=== PATIENT | male | born 1965 | race Caucasian/White ===

== ENCOUNTER 2017-05-03 07:11 | Day surgery (SDC) | payer OTHER ==
[~2017-05-03 07:11] MED LIST: Bupivacaine 0.5%/EPINEPHrine 1:200,000 50 ML MDV ONE; Dextrose 5%-Lactated Ringers 1,000 ML IV SCH; Lidocaine 1% 50 ML MDV ONE
[2017-05-03 07:31] VITALS: BP 106/71
[2017-05-03] MEDS ORDERED: Dextrose 5%-Lactated Ringers 1,000 ML IV SCH (08:30)
--- NOTE | 2017-05-06 14:31 | OR ---
DATE OF PROCEDURE: 05/03/2017 PREOPERATIVE DIAGNOSIS: Nonfunctioning gastrostomy tube. POSTOPERATIVE DIAGNOSIS: Nonfunctioning gastrostomy tube. PROCEDURE: Replacement of a nonfunctioning gastrostomy tube (42422). ANESTHESIA: None. DETAILS OF PROCEDURE: In the ACU procedure room, the patient was noted to have a nonfunctioning gastrostomy tube. At the bedside that tube was deflated and withdrawn and a similar 18-Mosotho gastrostomy tube was then placed. The balloon was inflated to 10 mL and the disc pulled up such that the balloon was up snugly against the abdominal wall to prevent leaking. There were no evident complications. The patient will be instructed to follow up at the clinic next time he needs the G tube removed as this did not require any anesthesia. Marvin Tobar MD /[id number]
== END 2017-05-03 09:17 | disposition home or self-care (01) ==
LOC: JP.SDS 07:11
PROVIDERS: ATTEND Surgery
DX: Z43.1 Encounter for attention to gastrostomy (principal); K94.23 Gastrostomy malfunction; I10 Essential (primary) hypertension; E78.00 Pure hypercholesterolemia, unspecified; K21.9 Gastro-esophageal reflux disease without esophagitis; E11.9 Type 2 diabetes mellitus without complications; E66.9 Obesity, unspecified; F32.9 Major depressive disorder, single episode, unspecified; Z90.49 Acquired absence of other specified parts of digestive tract; Z98.84 Bariatric surgery status; F17.210 Nicotine dependence, cigarettes, uncomplicated; Z68.25 Body mass index [BMI] 25.0-25.9, adult
CPT/HCPCS: 99213

== ENCOUNTER 2019-03-11 18:27 | Emergency (ER) | payer MEDICARE, OTHER ==
[2019-03-11 18:42] VITALS: BP 118/69
--- NOTE | 2019-03-11 19:30 | EDM.PDOC ---
ED HPI GENERAL MEDICAL PROBLEM - General Chief Complaint: General Stated Complaint: LEFT SIDE GJ TUBE PLUGGED Time Seen by Provider: 03/11/19 19:29 Source of Information: Reports: Patient History Limitations: Reports: No Limitations - History of Present Illness INITIAL COMMENTS - FREE TEXT/NARRATIVE: pt was advised by the clinic to come to the ER for the tube to be changed. Pt had called the clinic for a appt for tomorrow to get his tube changed and instead of making an appt they sent the pt to the ER, Onset: Other ( He has been struggling with the tube for several days. The tube has been in for 3 monthes. ) Duration: Hour(s):, Day(s): Associated Symptoms: Reports: Other (plugged GJ tube. ) Generalized Pain Score (Numeric/FACES): 6 - Related Data Allergies Allergy/AdvReac Type Severity Reaction Status Date / Time No Known Allergies Allergy Verified 03/11/19 18:52 Home Meds: Home Meds Ondansetron [Zofran ODT] 4 mg PO Q4H PRN #30 tab.dis 09/11/14 [Rx] Cyanocobalamin (Vitamin B-12) [Vitamin B-12] 1 tab SL DAILY 01/08/15 [History] Acetaminophen [Tylenol] 650 mg PO Q4H PRN 10/19/16 [History] Clotrimazole [Lotrimin AF 1% Crm] 1 g TOP BID 10/19/16 [History] Ergocalciferol (Vitamin D2) [Vitamin D2] 50,000 units PO WEEKLY 10/19/16 [ History] Multivitamin [Multiple Vitamins] 1 tab PO DAILY 10/19/16 [History] Pantoprazole [Protonix] 40 mg PO DAILY 10/19/16 [History] Prochlorperazine [Compazine] 5 mg PO Q4H PRN 10/19/16 [History] traZODone 50 mg PO BEDTIME 10/19/16 [History] Central TPN [Total Parenteral Nutrition, Central] 2,000 ml IV Q24H 05/03/17 [ History] Melatonin 1 tab PO DAILY 03/11/19 [History] Past Medical History Cardiovascular History: Reports: High Cholesterol, Hypertension, VT, Stents Respiratory History: Reports: Pneumonia, Recurrent Gastrointestinal History: Reports: Colon Polyp, GERD Genitourinary History: Reports: Renal Calculus, UTI, Recurrent Musculoskeletal History: Reports: Arthritis, Back Pain, Chronic Psychiatric History: Reports: Depression Endocrine/Metabolic History: Reports: Diabetes, Type II, Obesity/BMI 30+ Hematologic History: Reports: Iron Deficiency - Infectious Disease History Infectious Disease History: Reports: C-Difficile, MRSA - Past Surgical History Cardiovascular Surgical History: Reports: None Respiratory Surgical History: Reports: None GI Surgical History: Reports: Bariatric Procedure, Cholecystectomy, Colonoscopy , EGD, Other (See Below) Other GI Surgeries/Procedures: gj tube placed 2014 hooked up to suction most of the time Male Surgical History: Reports: None Endocrine Surgical History: Reports: None Neurological Surgical History: Reports: Spinal Fusion Musculoskeletal Surgical History: Reports: None, Other (See Below) Social & Family History - Family History Family Medical History: Noncontributory - Tobacco Use Smoking Status *Q: Never Smoker - Caffeine Use Caffeine Use: Reports: None - Recreational Drug Use Recreational Drug Use: No ED ROS GENERAL - Review of Systems Review Of Systems: See Below Constitutional: Reports: No Symptoms HEENT: Reports: No Symptoms Respiratory: Reports: No Symptoms Cardiovascular: Reports: No Symptoms Endocrine: Reports: No Symptoms GI/Abdominal: Reports: Other (pt has a plugged GJ tube. He is due to have it changed. ) : Reports: No Symptoms Musculoskeletal: Reports: No Symptoms Skin: Reports: No Symptoms ED EXAM, GENERAL - Physical Exam Exam: See Below Free Text/Narrative:: pt arrived with a plugged GJ tube. He is not in distress and would rather have Dr Tobar involved in the placement. Exam Limited By: No Limitations General Appearance: Alert, No Apparent Distress Ears: Normal TMs Nose: Normal Inspection Throat/Mouth: Normal Inspection Course - Vital Signs Last Recorded V/S: Last Vital Signs Temp 35.4 C 03/11/19 18:59 Pulse 75 03/11/19 18:59 Resp 16 03/11/19 18:59 BP 118/69 03/11/19 18:59 Pulse Ox 99 03/11/19 18:59 - Re-Assessments/Exams Free Text/Narrative Re-Assessment/Exam: 03/11/19 20:19 discussion was held with the pt regarding going to the [facility] tomorrow for tube placement. Departure - Departure Time of Disposition: 20:08 Disposition: Home, Self-Care 01 Condition: Fair Clinical Impression: Encounter for gastrojejunal (GJ) tube placement - Discharge Information Referrals: PCP,None [Primary Care Provider] - Forms: ED Department Discharge Care Plan Goals: pt was sent here for placemnt of a GJ tube. --he will go to the clinic tomorrow for placement.
== END 2019-03-11 20:30 | disposition home or self-care (01) ==
LOC: JP.ED 18:27
DX: Z43.1 Encounter for attention to gastrostomy (principal); E78.00 Pure hypercholesterolemia, unspecified; I10 Essential (primary) hypertension; I25.2 Old myocardial infarction; Z95.5 Presence of coronary angioplasty implant and graft; E11.9 Type 2 diabetes mellitus without complications; Z90.49 Acquired absence of other specified parts of digestive tract; Z98.84 Bariatric surgery status; Z79.899 Other long term (current) drug therapy
CPT/HCPCS: 99282

== ENCOUNTER 2019-11-14 14:58 | Inpatient (IN) | payer OTHER ==
[2019-11-14] MEDS ORDERED: Aluminum Hydroxide/Magnesium Hydroxide/Simethicone Susp 30 ML Cup PO PRN (16:00)
[2019-11-14] MEDS ORDERED: Bisacodyl 10 MG Supp RECTAL PRN (17:00)
[2019-11-14] MEDS: traMADol 50 MG Tab PO PRN (17:55)
[2019-11-14] MEDS: Fat Emulsion 250 ML IV SCH (17:57)
[2019-11-14] MEDS: Pantoprazole 40 MG Tab.CR PO SCH (17:57)
[2019-11-14] MEDS: 1: AA 5%/Calcium/D15W/Lytes 1,000 ML with MVI, Adult with Vitamin K 10 ML, Chromium/Copp IV SCH ×3 (17:57)
[2019-11-14] MEDS: Acetaminophen 500 MG Tab PO PRN (18:55)
[2019-11-14] MEDS: Baclofen 10 MG Tab PO PRN (18:56)
[2019-11-14] MEDS: Prochlorperazine 10 MG Tab PO PRN (18:56)
[2019-11-14] MEDS: traZODone 50 MG Tab PO SCH (21:00)
[2019-11-14] MEDS: Gabapentin 300 MG Cap PO SCH (21:25)
[2019-11-14] MEDS: Ondansetron 4 MG Tab.DIS PO SCH (21:25)
[2019-11-14] MEDS: Clotrimazole 1% Crm 30 GM Tube TOP SCH (21:26)
[2019-11-15] MEDS: traMADol 50 MG Tab PO PRN ×4 (02:04→22:40)
[2019-11-15] MEDS: 1: AA 5%/Calcium/D15W/Lytes 1,000 ML with MVI, Adult with Vitamin K 10 ML, Chromium/Copp IV SCH ×3 (04:10)
[2019-11-15] MEDS: DULoxetine 30 MG Cap PO SCH (08:14)
[2019-11-15] MEDS: Pantoprazole 40 MG Tab.CR PO SCH ×2 (08:14→16:43)
[2019-11-15] MEDS: Clotrimazole 1% Crm 30 GM Tube TOP SCH ×2 (08:15→21:18)
[2019-11-15] MEDS: Cyanocobalamin (Vitamin B12) 1,000 MCG Tab SL SCH (08:15)
[2019-11-15] MEDS: Magnesium Hydroxide 400 MG/5 ML Susp 30 ML Cup PO SCH (08:15)
[2019-11-15] MEDS: Gabapentin 300 MG Cap PO SCH ×3 (08:15→21:17)
[2019-11-15] MEDS: Furosemide 20 MG Tab PO SCH (08:15)
[2019-11-15] MEDS: Acetaminophen 500 MG Tab PO PRN ×2 (09:53→18:27)
[2019-11-15] MEDS: Nicotine 21 MG/24 Hr Patch TRDERM SCH (13:22)
[2019-11-15] MEDS ORDERED: 1: AA 5%/Calcium/D15W/Lytes 1,000 ML with MVI, Adult with Vitamin K 10 ML, Chromium/Copp IV SCH ×3 (14:00)
[2019-11-15] MEDS: Albuterol/Ipratropium 3.0-0.5 MG/3 ML Neb Soln INH PRN (14:43)
[2019-11-15] MEDS: 1: AA 5%/Calcium/D20W/Lytes 1,000 ML with MVI, Adult with Vitamin K 10 ML, Chromium/Copp IV SCH ×3 (14:52)
[2019-11-15] MEDS: Fat Emulsion 250 ML IV SCH (18:11)
[2019-11-15] MEDS: Ondansetron 4 MG Tab.DIS PO SCH (21:17)
[2019-11-15] MEDS: traZODone 50 MG Tab PO SCH (21:18)
[2019-11-16] MEDS: 1: AA 5%/Calcium/D20W/Lytes 1,000 ML with MVI, Adult with Vitamin K 10 ML, Chromium/Copp IV SCH ×9 (00:02→22:00)
[2019-11-16] MEDS: Albuterol/Ipratropium 3.0-0.5 MG/3 ML Neb Soln INH PRN (05:14)
[2019-11-16] MEDS: traMADol 50 MG Tab PO PRN ×3 (05:35→18:00)
[2019-11-16] MEDS ORDERED: Central Total Parenteral Nutrition Bag SCH (07:30)
[2019-11-16] MEDS: Pantoprazole 40 MG Tab.CR PO SCH ×2 (07:55→17:28)
[2019-11-16] MEDS: Magnesium Hydroxide 400 MG/5 ML Susp 30 ML Cup PO SCH (08:04)
[2019-11-16] MEDS: Cyanocobalamin (Vitamin B12) 1,000 MCG Tab SL SCH (08:08)
[2019-11-16] MEDS: DULoxetine 30 MG Cap PO SCH (08:08)
[2019-11-16] MEDS: Nicotine 21 MG/24 Hr Patch TRDERM SCH (08:08)
[2019-11-16] MEDS: Furosemide 20 MG Tab PO SCH (08:08)
[2019-11-16] MEDS: Gabapentin 300 MG Cap PO SCH ×3 (08:08→21:41)
[2019-11-16] MEDS: Clotrimazole 1% Crm 30 GM Tube TOP SCH ×2 (08:09→21:42)
--- NOTE | 2019-11-16 09:07 | PN ---
DATE OF SERVICE: 11/16/2019 SUBJECTIVE: Yeyo was admitted to the hospital on 11/14/2019 for malnutrition and deconditioning. He has been on TPN therapy and has persistent weakness and malnutrition. He reports no concerns or questions today. Temperature max in the past 24 hours 99.5. Reports weakness, fatigue. He does state this morning that he started getting hungry for the first time last night during the night and this a.m. which he states has been almost a year since he has felt hungry. REVIEW OF SYSTEMS: HEENT: Negative. NECK: Negative. CHEST: No chest pain, shortness of breath. LUNGS: Cough sometimes productive, not sure what color it is. ABDOMEN: Negative for pain. Gastrostomy tube in place. It is to drainage during the night and clamped during the day. Last bowel movement was 11/13/2019. States he has his normal bowel routine, it is 1 bowel movement every 1 to 1-1/2 weeks. GENITOURINARY: Culture and sensitivity is pending for his urine. It will be available later today. His bladder was scanned 3 times after voiding to check if there is any urinary retention. There were 80 mL on the first scan, second scan 19 mL, and third scan 75 mL. EXTREMITIES: Negative. NEUROLOGIC: Cranial nerves II through XII intact. PSYCHIATRIC: Mood and affect are appropriate. SKIN: Without rash. Remainder of review of systems negative for any pertinent positives and negatives. OBJECTIVE: GENERAL: Yeyo Dietrich is a 54-year-old male. VITAL SIGNS: Height is 6 feet 1 inch, weight is 175 pounds. BMI is 23. TPR from 11/15/2019 at 2300, 98.8, 68, 16, blood pressure 121/67. HEENT: Negative. NECK: Supple. HEART: Regular rate and rhythm. LUNGS: Revealed rales in bilateral bases. ABDOMEN: G tube intact. EXTREMITIES: Without peripheral edema. ASSESSMENT: 1. Malnutrition. 2. Deconditioning. 3. TPN for nutrition. 4. Urinary tract infection. PLAN: 1. Schedule, have consent signed for placement of Maynard catheter. N.p.o. after midnight. IV and local sedation scheduled for 07:15, Marvin Tobar MD. To be n.p.o. after midnight and to keep gastrostomy tube to dependent drainage. 2. Call Marvin Tobar MD, with results of sensitivity of urine. 3. Continue TPN. New orders were faxed to Pharmacy. 4. Culture methicillin-resistant Staphylococcus aureus to rule out methicillin-resistant Staphylococcus aureus per protocol. 5. Check CBC, CMP, mag, phos, and BNP in a.m. 6. Good pulmonary toilet. 7. We will evaluate p.r.n. or in a.m. Jessi Gonzales PA-C /[id number]
[2019-11-16 09:16] LABS: HEMOGLOBIN A1C 5.1 % (4.5-6.2)
--- NOTE | 2019-11-16 13:37 | PN ---
DATE OF SERVICE: 11/15/2019 The patient has been afebrile with stable vital signs. Complaining of some usual chronic back and some abdominal pain. The patient felt a little bit better with suction at a little higher rate than does at home, and it is presently at 75 cm of water versus 25 at home, and that may need adjustment again too. Otherwise, his alertness is good. Nutritionally, his labs came back showing quite low albumin at 2.2, and bicarb is strikingly low at 10, and we will make adjustments on the TPN to increase the acetate significantly. We will also give him some supplemental albumin today. With recurrent UTIs, I think we will get a post void bladder scan times three to see how well he is emptying the bladder, as that may be part of the underlying problem there, and while he is in the hospital, we will allow him to use his vaping mechanism, which is not seeming to be problematic at all. Physical Therapy will be seeing the patient starting tomorrow, and then on Saturday or so, we will likely, if he is not showing any signs of infection, try getting a Maynard catheter in, which it will be a longer term IV access than the frequently replaced simple subclavian catheters that he has been getting. Toward mid to end of the week, he may be ready for transfer to rehab facility that is able to manage TPN. Marvin Tobar MD /[id number]
[2019-11-16] MEDS: Fat Emulsion 250 ML IV SCH (17:30)
[2019-11-16] MEDS: Prochlorperazine 10 MG Tab PO PRN (17:30)
[2019-11-16] MEDS: Ondansetron 4 MG Tab.DIS PO SCH (21:41)
[2019-11-16] MEDS: traZODone 50 MG Tab PO SCH (21:42)
[2019-11-16] MEDS: Morphine 2 MG/ML Syringe IVPUSH PRN (21:42)
[2019-11-16] MEDS: Melatonin 3 MG Tab PO PRN (22:03)
[2019-11-17] MEDS: Acetaminophen 500 MG Tab PO PRN (02:23)
[2019-11-17] MEDS: traMADol 50 MG Tab PO PRN ×2 (02:24→18:52)
[2019-11-17] MEDS: Morphine 2 MG/ML Syringe IVPUSH PRN ×4 (03:51→21:38)
[2019-11-17] MEDS ORDERED: Lidocaine 1% with EPINEPHrine 1:100,000 50 ML MDV ONE (06:40)
[2019-11-17] MEDS ORDERED: Bupivacaine 0.5% 50 ML MDV ONE (06:40)
[2019-11-17] MEDS ORDERED: Propofol 200 MG/20 ML SDV ONE ×2 (06:47→07:47)
[2019-11-17] MEDS ORDERED: fentaNYL 100 MCG/2 ML SDV ONE (06:48)
[2019-11-17] MEDS ORDERED: Midazolam 1 MG/ML 2 ML SDV ONE (06:48)
[2019-11-17] MEDS: 1: AA 5%/Calcium/D20W/Lytes 1,000 ML with MVI, Adult with Vitamin K 10 ML, Chromium/Copp IV SCH ×6 (09:16→19:29)
[2019-11-17] MEDS: DULoxetine 30 MG Cap PO SCH (09:28)
[2019-11-17] MEDS: Furosemide 20 MG Tab PO SCH (09:28)
[2019-11-17] MEDS: Cyanocobalamin (Vitamin B12) 1,000 MCG Tab SL SCH (09:28)
[2019-11-17] MEDS: Pantoprazole 40 MG Tab.CR PO SCH ×2 (09:29→17:18)
[2019-11-17] MEDS: Gabapentin 300 MG Cap PO SCH ×3 (09:29→21:40)
[2019-11-17] MEDS: Clotrimazole 1% Crm 30 GM Tube TOP SCH ×2 (09:29→21:39)
[2019-11-17] MEDS: Nicotine 21 MG/24 Hr Patch TRDERM SCH (09:29)
[2019-11-17] MEDS: Magnesium Hydroxide 400 MG/5 ML Susp 30 ML Cup PO SCH (09:40)
[2019-11-17] MEDS: Sulfamethoxazole/Trimethoprim 800-160 MG Tab PO SCH (14:03)
[2019-11-17] MEDS: Fat Emulsion 250 ML IV SCH (18:29)
[2019-11-17] MEDS: Prochlorperazine 10 MG Tab PO PRN (19:38)
[2019-11-17] MEDS: Albuterol/Ipratropium 3.0-0.5 MG/3 ML Neb Soln INH PRN (21:14)
[2019-11-17] MEDS: traZODone 50 MG Tab PO SCH (21:39)
[2019-11-17] MEDS: Melatonin 3 MG Tab PO PRN (21:39)
[2019-11-17] MEDS: Ondansetron 4 MG Tab.DIS PO SCH (21:40)
[2019-11-18] MEDS: Acetaminophen 500 MG Tab PO PRN ×2 (00:24→08:40)
[2019-11-18] MEDS: Baclofen 10 MG Tab PO PRN ×3 (00:24→18:47)
[2019-11-18] MEDS: Morphine 2 MG/ML Syringe IVPUSH PRN ×4 (04:21→22:23)
[2019-11-18] MEDS: 1: AA 5%/Calcium/D20W/Lytes 1,000 ML with MVI, Adult with Vitamin K 10 ML, Chromium/Copp IV SCH ×6 (05:07→15:00)
--- NOTE | 2019-11-18 05:14 | CRLCR ---
INDICATION: Confirm subclavian placement TECHNIQUE: Chest radiograph 2 views COMPARISON: 09/02/2014 FINDINGS: Mediastinum: The mediastinum is normal in appearance. The heart silhouette is normal in size and morphology. A left IJ line is noted with the tip in the innominate vein. Lung: Bilateral pulmonary hyperinflation and lucency noted, suggestive of moderate pulmonary emphysema. Interval moderate right and mild left pleural thickening and pleural parenchymal scarring seen. No pneumothorax is identified. Bone and Soft tissue: Unremarkable for age. IMPRESSIONS: 1. Interval moderate right and mild left pleural thickening and pleural parenchymal scarring seen. 2. Bilateral pulmonary hyperinflation and lucency noted, suggestive of moderate pulmonary emphysema. Dictated by Hal Novoa MD @ 11/18/2019 5:13:16 AM Dictated by: Hal Novoa MD @ 11/18/2019 05:13:17 (Electronically Signed)
[2019-11-18] MEDS ORDERED: Central Total Parenteral Nutrition Bag SCH (07:30)
[2019-11-18] MEDS: Albumin 25% 12.5 GM in Premix Bag 1 BAG IV SCH (08:37)
[2019-11-18] MEDS: Furosemide 20 MG Tab PO SCH (08:38)
[2019-11-18] MEDS: Cyanocobalamin (Vitamin B12) 1,000 MCG Tab SL SCH (08:39)
[2019-11-18] MEDS: Sulfamethoxazole/Trimethoprim 800-160 MG Tab PO SCH (08:39)
[2019-11-18] MEDS: Gabapentin 300 MG Cap PO SCH ×3 (08:39→21:45)
[2019-11-18] MEDS: Pantoprazole 40 MG Tab.CR PO SCH ×2 (08:39→16:29)
[2019-11-18] MEDS: Nicotine 21 MG/24 Hr Patch TRDERM SCH (08:40)
--- NOTE | 2019-11-18 08:42 | PN ---
DATE OF SERVICE: 11/18/2019 SUBJECTIVE: James had a Maynard catheter placed yesterday, tolerating well. Unable to remove right central line. He will need to go to surgery to have that removed. LABORATORY DATA: This morning, hemoglobin was 8.9, creatinine 0.7, bilirubin 1.2, AST 60, ALT 88, and alkaline phos is 675. Albumin is up to 2.8. REVIEW OF SYSTEMS: Remainder of review of systems negative for any pertinent positives and negatives. OBJECTIVE: GENERAL: James Dietrich is a 54-year-old male, alert, orientated, color pale. VITAL SIGNS: TPR 98.1, 62, 16, blood pressure 91/55. HEENT: Negative. NECK: Supple. HEART: Regular rate and rhythm. LUNGS: Clear. ABDOMEN: Negative. Gastrostomy tube is clamped. EXTREMITIES: Without peripheral edema. ASSESSMENT: 1. Malnutrition. 2. Deconditioning. 3. TPN for nutrition. 4. Urinary tract infection. PLAN: 1. Schedule and have consent signed for removal of right central line IV, local sedation, , 11/19/2019. Marvin Tobar MD. 2. N.p.o. after midnight. 3. Leave gastrostomy tube to drainage. 4. Continue same TPN rate and contents. 5. Check CBC, CMP, mag and phos in a.m. 6. Good pulmonary toilet. 7. We will evaluate p.r.n. or in a.m. Jessi Gonzales PA-C /[id number]
[2019-11-18] MEDS: Magnesium Hydroxide 400 MG/5 ML Susp 30 ML Cup PO SCH (08:46)
[2019-11-18] MEDS: Clotrimazole 1% Crm 30 GM Tube TOP SCH ×2 (08:47→21:45)
[2019-11-18] MEDS: DULoxetine 30 MG Cap PO SCH (08:49)
[2019-11-18] MEDS ORDERED: Albumin 25% 12.5 GM in Premix Bag 1 BAG IV SCH ×3 (10:00→14:00)
[2019-11-18] MEDS: traMADol 50 MG Tab PO PRN (13:17)
[2019-11-18] MEDS: Fat Emulsion 250 ML IV SCH (17:33)
[2019-11-18] MEDS: Albuterol/Ipratropium 3.0-0.5 MG/3 ML Neb Soln INH PRN (18:47)
[2019-11-18] MEDS: Ondansetron 4 MG Tab.DIS PO SCH (21:45)
[2019-11-18] MEDS: traZODone 50 MG Tab PO SCH (21:45)
[2019-11-18] MEDS: Melatonin 3 MG Tab PO PRN (22:21)
[2019-11-19] MEDS: traMADol 50 MG Tab PO PRN (01:12)
[2019-11-19] MEDS: 1: AA 5%/Calcium/D20W/Lytes 1,000 ML with MVI, Adult with Vitamin K 10 ML, Chromium/Copp IV SCH ×3 (01:14)
[2019-11-19] MEDS: Morphine 2 MG/ML Syringe IVPUSH PRN (04:29)
[2019-11-19] MEDS ORDERED: Lidocaine 1% with EPINEPHrine 1:100,000 50 ML MDV ONE (06:37)
[2019-11-19] MEDS ORDERED: Bupivacaine 0.5% 50 ML MDV ONE (06:37)
[2019-11-19] MEDS ORDERED: Propofol 200 MG/20 ML SDV ONE (07:16)
[2019-11-19] MEDS ORDERED: Midazolam 1 MG/ML 2 ML SDV ONE (07:16)
[2019-11-19] MEDS ORDERED: fentaNYL 100 MCG/2 ML SDV ONE (07:16)
[2019-11-19] MEDS: Gabapentin 300 MG Cap PO SCH (09:04)
[2019-11-19] MEDS: Cyanocobalamin (Vitamin B12) 1,000 MCG Tab SL SCH (09:04)
[2019-11-19] MEDS: Sulfamethoxazole/Trimethoprim 800-160 MG Tab PO SCH (09:05)
[2019-11-19] MEDS: Pantoprazole 40 MG Tab.CR PO SCH (09:05)
[2019-11-19] MEDS: DULoxetine 30 MG Cap PO SCH (09:05)
[2019-11-19] MEDS: Furosemide 20 MG Tab PO SCH (09:06)
[2019-11-19] MEDS: Nicotine 21 MG/24 Hr Patch TRDERM SCH (09:06)
[2019-11-19] MEDS: Magnesium Hydroxide 400 MG/5 ML Susp 30 ML Cup PO SCH (09:07)
[2019-11-19] MEDS: Clotrimazole 1% Crm 30 GM Tube TOP SCH (09:07)
[2019-11-19] MEDS: Baclofen 10 MG Tab PO PRN (09:21)
[2019-11-19] MEDS: Albumin 25% 12.5 GM in Premix Bag 1 BAG IV SCH (09:23)
[2019-11-19 09:34] VITALS: PULSE 72
[2019-11-19 09:42] VITALS: BP 120/76
--- NOTE | 2019-11-19 10:43 | PN ---
DATE OF SERVICE: 11/17/2019 The patient has been afebrile with stable vital signs. He had a Maynard catheter placed today and will plan to get him home probably later in the week. He does not appear to qualify for inpatient rehab facility. We will continue to do the TPN at 2600 calories for now. His albumin did creep up a little bit at 1.2 and need to be watching that. Otherwise, the plan will be to run roughly that amount of calories over 14 hours at home, when he gets home. The patient has had problems with recurrent UTIs, and the cultures obtained now showed Klebsiella, which is sensitive, among other things, to Septra. We will start him on a daily Septra DS dose to try to decrease the likelihood of developing significant UTIs. Marvin Tobar MD /[id number]
--- NOTE | 2019-11-19 13:34 | OR ---
DATE OF PROCEDURE: 11/19/2019 SURGEON: Marvin Tobar MD PREOPERATIVE DIAGNOSIS: Status right internal jugular vein central venous catheter. POSTOPERATIVE DIAGNOSIS: Status right internal jugular vein central venous catheter. OPERATIVE PROCEDURE: Surgical removal of right-sided internal jugular vein central venous catheter (69443). ANESTHESIA: Local plus IV sedation. INDICATION FOR PROCEDURE: This is a 54-year-old male presenting with indications for removal of a right-sided central venous catheter. This catheter comes out on the skin roughly a handsbreadth below the clavicle, but just above the clavicle, there is what appears to be an ingrowth around, likely fibrous button at that point, and the catheter would not be able to be removed by simply going down through the skin. The plan is to proceed with an incision over that site, freeing up of the attachments, and removal of the catheter. Potential risks including bleeding and infection were reviewed, and the patient wishes to proceed. DETAILS OF PROCEDURE: The patient was taken to the operating room and placed in a supine position. IV sedation was administered, after which, the upper chest and neck areas were prepped and draped. The area over the palpable fibrous button, just below the clavicle, was anesthetized with 1% lidocaine. A transverse incision was made and carried down through the skin and subcutaneous tissue. The soft tissues around the fibrous button were then dissected free from the catheter and button, and the catheter was then pulled out a few centimeters. A pursestring stitch of 4-0 Vicryl stitch, where the catheter passed toward the jugular vein, was then placed and the catheter was removed the remainder of the length and that pursestring stitch pulled up and tied to prevent bleeding or air embolism. The catheter was then divided just proximal to the fibrous button, and the remaining catheter pulled out through the skin exit site. The incision was closed with 5-0 Vicryl subcuticular stitch along with reinforced with glue on the skin, and the external side left open. Dressing was applied. The patient was taken to the recovery room in satisfactory condition. There were no evident complications. Marvin Tobar MD /[id number]
[2019-11-20] MEDS ORDERED: Cholecalciferol (Vitamin D3) 50,000 Unit Cap PO SCH (09:00)
--- NOTE | 2019-11-20 15:28 | OR ---
DATE OF PROCEDURE: 11/17/2019 SURGEON: Marvin Tobar MD PREOPERATIVE DIAGNOSIS: Indications for long-term central venous access. POSTOPERATIVE DIAGNOSIS: Indications for long-term central venous access. PROCEDURE PERFORMED: Placement of double-lumen Maynard catheter via left internal jugular vein approach (79090). ANESTHESIA: Local plus IV sedation. INDICATION FOR PROCEDURE: The patient presents for placement of double-lumen Maynard catheter. He has been recently hospitalized and is being maintained on long-term more or less permanent TPN. The patient is complaining of some discomfort in the area of the right- sided single-lumen catheter placed. This has a cuff present up above the level of the clavicle, i.e., there is an extended area of the catheter underneath the skin and subcutaneous tissue which is not occluded at the skin surface by an ingrowth around a fibrous button, and the patient was felt to be at risk for significant infection in that area. Plan is to proceed with a double-lumen Maynard catheter, which will facilitate his ongoing care with the use of IV access in addition to the TPN, and this catheter will be positioned such that the fibrous cuff is just underneath the skin, which would afford low likelihood of the catheter becoming infected unless it is contaminated at the time of flushes or connecting to the TPN. Potential risks of the procedure including bleeding, infection, occlusion of the catheter, pneumothorax during placement were all reviewed, and the patient wishes to proceed. DETAILS OF PROCEDURE: The patient was taken to the operating room and placed in a supine position. IV sedation was administered, after which the upper chest and neck areas were prepped and draped. The left subclavian area was then initially anesthetized with 1% lidocaine mixed with Marcaine. The left subclavian vein was then cannulated and a guidewire passed. This was not able to be passed beyond what appeared to be the junction of the innominate vein, jugular, and subclavian veins. The vein was accessed 4 different times with the identical result being identified. At each time, the wire was elevated past the skin, it was essentially taken to the internal jugular vein. The skin over this was anesthetized with 1% lidocaine mixed with Marcaine and the jugular vein cannulated. Guidewire was then passed from there, and this initially went down the arm, but then was able to be manipulated into the innominate vein, and from there, into the superior vena cava. Four fingerbreadths below the clavicle was anesthetized with 1% lidocaine mixed with Marcaine and the tract between that point and the area where the jugular vein had been accessed was also anesthetized. A stab wound was made at each location, and the Maynard catheter was then tunneled from the infraclavicular incision up to the area of the jugular vein access. This was positioned such that the fibrous spot was just inside the skin on the lower of the incisions. Catheter was cut such that the tip would lie in the area of the superior vena cava and right atrial junction and delivered without difficulty through the the peel-away catheter. Fluoroscopic confirmation of adequate location was confirmed, and the catheter was sutured to external skin site with a 3- 0 nylon stitch and the jugular puncture site closed with 5-0 Vicryl subdermal stitch and a Steri-Strip. Catheter was then aspirated with good blood return from both ports, and both ports were flushed with heparinized saline. The patient was taken to the recovery room in satisfactory condition. Marvin Tobar MD /[id number]
--- NOTE | 2019-11-23 08:49 | DISCH ---
ADMISSION DIAGNOSES: 1. Severe protein-calorie malnutrition with TPN dependence. 2. Deconditioning. 3. TPN for nutrition. 4. Chronic urinary tract infection. 5. Gastrostomy tube dependent, status post gastrectomy. 6. Pulmonary hypertension. 7. Chronic respiratory failure with hypoxia. 8. Tobacco dependence. 9. History of kidney stones. 10.Unspecified surgical malabsorption. 11.B12 deficiency. 12.Vitamin D deficiency. 13.Chronic back pain. 14.Chronic nausea. 15.Chronic pain disorder. 16.Coronary artery disease. 17.History of pulmonary embolism. 18.History of methicillin-resistant Staphylococcus aureus. DISCHARGE DIAGNOSES: 1. Severe protein-calorie malnutrition with TPN dependence. 2. Physical deconditioning. 3. Placement of double-lumen Maynard catheter via left internal jugular vein approach for indication for long-term central vein access. Date of surgery, 11/17/2019. 4. Surgical removal of right-sided internal jugular vein central venous catheter for status right internal jugular vein central venous catheter. Date of procedure, 11/19/2019. HISTORY: James Dietrich is a 54-year-old male who is TPN dependent for nutrition. He was admitted to the hospital on 11/14/2019 for adjustment of his TPN. Labs were drawn and albumin was 2.2, bicarb was 10, and adjustments were made to TPN. He had recurrent urinary tract infection and bladder scans were done 3 times and showed no urinary retention. Physical Therapy did start seeing the patient on 11/16/2019. TPN was adjusted and the new orders were faxed to Pharmacy. Culture for MRSA was done for protocol to clear him of the MRSA precautions. On 11/17/2019, the Maynard catheter placed. He had the gastrostomy tube left to drainage. Labs were ordered daily. On 11/19/2019, he was able to be discharged to home. The TPN was adjusted appropriately. Lab tests that were last checked: Hemoglobin was 9, hematocrits 30.6; sodium was 131, potassium 3.9, bilirubin 1.3, AST 56, ALT 90, alkaline phosphatase 386; albumin went up from 2.2 to 3.2. Microbiology: MRSA, no MRSA was isolated. Urine bladder clean-catch was Klebsiella pneumoniae and sensitive to Bactrim. PHYSICAL EXAMINATION: GENERAL: Yeyo Dietrich is a 54-year-old male. VITAL SIGNS: Height is 6 feet 1 inch, weight is 176 pounds 9.6 ounces, BMI 23.3, TPR 96.6, 72, 15, blood pressure 120/76. HEENT: Negative. NECK: Supple. HEART: Regular rate and rhythm. LUNGS: Clear. ABDOMEN: Gastrostomy tube in place, it currently is to drainage. Abdomen otherwise is soft and nontender. EXTREMITIES: Without peripheral edema. SKIN: Without rash. NEUROLOGIC: Cranial nerves II to XII intact. PSYCHIATRIC: Mood and affect appropriate. DISPOSITION: Discharged to home with home health care. FOLLOWUP: Followup appointment with Marvin Tobar MD, at [facility], 12/09/2019 at 11:00 a.m. HOME MEDICATIONS: 1. He is to continue TPN orders as written on a separate order sheet per Marvin Tobar MD and he is to run the TPN for 14 hours. 2. Bactrim DS 200/40 mg per 5 mL, he is to take 20 mL by mouth once daily for 1 year. Resume home medication, Zofran ODT 4 mg, take 2 tabs every 8 hours p.r.n. nausea. 3. Tramadol 50 mg 1 three times daily p.r.n. pain. 4. Lasix 20 mg once daily. 5. Proventil nebulizer solution 3 mL every 4 hours p.r.n. wheezing. 6. Cymbalta 30 mg take 2 caps by mouth once a day. 7. Acetaminophen 500 mg capsule, take 2 caps by mouth every 8 hours p.r.n. pain or fever. 8. Compazine 5 mg 1 every 6 hours p.r.n. nausea. 9. Tylenol 650 mg suppository, insert 1 suppository into rectum every 4 hours p.r.n. fever. 10.Milk of mag 30 mL once daily p.r.n. constipation. 11.Maalox oral suspension 30 mL p.r.n. heartburn. 12.Dulcolax 10 mg suppository 1 into rectum once daily. 13.Clotrimazole 1% cream, apply cream topically twice daily. 14.Baclofen 10 mg take 2 tablets by mouth 3 times a day p.r.n. pain and muscle spasm. 15.Trazodone 100 mg take 1.5 tablets at bedtime. 16.Omeprazole (Prilosec) 40 mg 1 capsule twice daily. 17.Vitamin D 50,000 international units 1 capsule by mouth once a week. 18.Neurontin 300 mg take 2 caps by mouth 3 times a day. 19.DuoNeb 3 mL into lungs every 4 hours p.r.n. shortness of breath. 20.Nicoderm CQ 21 mg per 24 hours, place 1 patch onto skin once a day. 21.Oxygen, use as directed. 22.Melatonin 10 mg by mouth every evening. 23.Multivitamin 1 tablet once a day. 24.Vitamin B12 1000 sublingual cap under tongue as needed. DIET: Diet as tolerated. FLUIDS: Drink 8 to 10 glasses of water a day. ACTIVITY: As tolerated per Physical Therapy. Do not drive after current procedure for 24 hours. Shower/bathing: May shower. DISCHARGE INSTRUCTIONS: Notify provider if any fever, pain, nausea, or vomiting. Continue the same gastrostomy tube care. May remove dressing from left subclavian area in 24-48 hours.
== END 2019-11-19 11:00 | disposition home health service (06) | DRG 641 ==
LOC: JP.MS 17:25
PROVIDERS: ADMIT Surgery; ATTEND Surgery
PROC: 02H633Z Insertion of Infusion Device into Right Atrium, Percutaneous Approach (ICD-10-PCS; principal; 2019-11-17)
PROC: B518ZZA Fluoroscopy of Superior Vena Cava, Guidance (ICD-10-PCS; 2019-11-17)
PROC: 05PY33Z Removal of Infusion Device from Upper Vein, Percutaneous Approach (ICD-10-PCS; 2019-11-19)
DX: E46 Unspecified protein-calorie malnutrition (principal); N39.0 Urinary tract infection, site not specified; Z68.23 Body mass index [BMI] 23.0-23.9, adult; R53.83 Other fatigue; B96.1 Klebsiella pneumoniae [K. pneumoniae] as the cause of diseases classified elsewhere
CPT/HCPCS: 36415; 51798; 71046; 80053; 81001; 82306; 82525; 82607; 82728; 82746; 82962; 83036; 83735; 83880; 84100; 84590; 84630; 85025; 85027; 87070; 87086; 87088; 87186; 94640; 97110-GP; 97162-GP; 97165-GO; 97530-GP; A9270-GY; C1776; J1642; J2250; J2270; J2704; J3010; J3490; J7620-GY; P9047; Q0164

== ENCOUNTER 2021-10-22 13:19 | Emergency (ER) | payer OTHER ==
[2021-10-22 13:43] VITALS: BP 128/80; PULSE 106
[2021-10-22] MEDS ORDERED: Albuterol/Ipratropium 3.0-0.5 MG/3 ML Neb Soln NEB ONE (13:56)
--- NOTE | 2021-10-22 15:51 | EDM.PDOC ---
ED HPI GENERAL MEDICAL PROBLEM - General Chief Complaint: General Stated Complaint: GJ TUBE Time Seen by Provider: 10/22/21 14:00 Source of Information: Reports: Patient, Family History Limitations: Reports: No Limitations - History of Present Illness INITIAL COMMENTS - FREE TEXT/NARRATIVE: 56-year-old male with a chronic JG tube has a malfunctioning tube at this time. He needs it replaced. He is also due for a nebulizer and is having some wheezing. He went down to [place] last night to get the tube replaced but they put in the wrong one, it is not functioning appropriately. Onset: Unknown/Unsure Associated Symptoms: Reports: Shortness of Breath (Mild shortness of breath and wheezing) - Related Data Allergies Allergy/AdvReac Type Severity Reaction Status Date / Time No Known Allergies Allergy Verified 03/11/19 18:52 Home Meds: Home Meds Ondansetron [Zofran ODT] 4 mg PO Q4H PRN #30 tab.dis 09/11/14 [Rx] Cyanocobalamin (Vitamin B-12) [Vitamin B-12] 1 tab SL DAILY 01/08/15 [History] Acetaminophen [Tylenol] 650 mg PO Q4H PRN 10/19/16 [History] Clotrimazole [Lotrimin AF 1% Crm] 1 g TOP BID 10/19/16 [History] Ergocalciferol (Vitamin D2) [Vitamin D2] 50,000 units PO WEEKLY 10/19/16 [History] Multivitamin [Multiple Vitamins] 1 tab PO DAILY 10/19/16 [History] Pantoprazole [ProTONIX] 40 mg PO DAILY 10/19/16 [History] Prochlorperazine [Compazine] 5 mg PO Q4H PRN 10/19/16 [History] traZODone 50 mg PO BEDTIME 10/19/16 [History] Central TPN [Total Parenteral Nutrition, Central] 2,000 ml IV Q24H 05/03/17 [History] Melatonin 1 tab PO DAILY 03/11/19 [History] Albuterol [Proventil Neb Soln] 2.5 mg .XX Q4H 11/14/19 [History] Albuterol/Ipratropium [DuoNeb 3.0-0.5 MG/3 ML] 1 ampule NEB Q8H PRN 11/14/19 [History] Baclofen 20 mg PO BID 11/14/19 [History] DULoxetine [Cymbalta] 30 mg PO DAILY 11/14/19 [History] Furosemide [Lasix] 20 mg PO DAILY 11/14/19 [History] Gabapentin [Neurontin] 600 mg PO BID 11/14/19 [History] Nicotine [Nicotine Patch] 21 mg TD Q24H 11/14/19 [History] traMADol [Ultram] 50 mg PO Q6H PRN 11/14/19 [History] Sulfamethoxazole/Trimethoprim [Bactrim Ds Tablet] 1 each PO DAILY #90 tablet 11/19/19 [Rx] Past Medical History Cardiovascular History: Reports: Heart Failure, High Cholesterol, Hypertension, [place], Stents Respiratory History: Reports: COPD, Pneumonia, Recurrent Gastrointestinal History: Reports: Colon Polyp, GERD Genitourinary History: Reports: Renal Calculus, UTI, Recurrent Musculoskeletal History: Reports: Arthritis, Back Pain, Chronic Psychiatric History: Reports: Depression Endocrine/Metabolic History: Reports: Diabetes, Type II, Obesity/BMI 30+ Other Endocrine/Metabolic History: no longer DMII; hx obesity Hematologic History: Reports: Iron Deficiency Dermatologic History: Reports: Other (See Below) Other Dermatologic History: excoriation around G Tube - Infectious Disease History Infectious Disease History: Reports: MRSA - Past Surgical History Cardiovascular Surgical History: Reports: None Respiratory Surgical History: Reports: None GI Surgical History: Reports: Bariatric Procedure, Cholecystectomy, Colonoscopy, EGD, Other (See Below) Other GI Surgeries/Procedures: gj tube placed 2014 hooked up to suction most of the time; [facility] Oct Male Surgical History: Reports: None, Lithotripsy ([facility]) Endocrine Surgical History: Reports: None Neurological Surgical History: Reports: Spinal Fusion Musculoskeletal Surgical History: Reports: None, Other (See Below) Other Musculoskeletal Surgeries/Procedures:: anterior/posterior back fusion and hardware removed 1 yr later 1989 Social & Family History - Family History Family Medical History: No Pertinent Family History - Tobacco Use Tobacco Use Status *Q: Current Every Day Tobacco User Years of Tobacco use: 45 Packs/Tins Daily: 0.5 - Caffeine Use Caffeine Use: Reports: Soda - Recreational Drug Use Recreational Drug Use: No ED ROS GENERAL - Review of Systems Review Of Systems: See Below Constitutional: Denies: Fever, Chills HEENT: Reports: No Symptoms Respiratory: Reports: Shortness of Breath, Wheezing GI/Abdominal: Denies: Abdominal Pain, Nausea, Vomiting Skin: Reports: Other (A small amount of erythema which is chronic around the JG site) Psychiatric: Reports: No Symptoms ED EXAM, GENERAL - Physical Exam Exam: See Below Exam Limited By: No Limitations General Appearance: Alert, No Apparent Distress Head: Atraumatic Respiratory/Chest: No Respiratory Distress, Wheezing (Fairly widespread expiratory wheezing is present) Cardiovascular: Regular Rate, Rhythm, Tachycardia (Mild tachycardia) GI/Abdominal: Normal Bowel Sounds, Soft, Other (JG tube is leaking and plugged not allowing the removal of gastric contents if needed) Neurological: Alert, Oriented Psychiatric: Normal Affect, Normal Mood Course - Vital Signs Last Recorded V/S: Last Vital Signs Temp 98.3 F 10/22/21 13:56 Pulse 106 H 10/22/21 13:56 Resp 18 10/22/21 13:56 BP 128/80 10/22/21 13:56 Pulse Ox 96 10/22/21 13:56 - Orders/Labs/Meds Meds: Medications Discontinued Medications Generic Name Dose Route Start Last Admin Trade Name Freq PRN Reason Stop Dose Admin Albuterol/Ipratropium 3 ml 10/22/21 13:56 10/22/21 14:16 Albuterol/Ipratropium 3.0-0.5 Mg/3 Ml Neb Soln NEB 10/22/21 13:57 3 ml ONETIME ONE Administration - Re-Assessments/Exams Free Text/Narrative Re-Assessment/Exam: 10/22/21 15:49 Patient was given a DuoNeb with good objective and subjective improvement of his wheezing. The JG tube was removed without difficulty, the area was cleaned thoroughly, and a new 20 [place] tube was placed without difficulty. It was functioning appropriately. He will follow up with Dr. Tobar as needed. Departure - Departure Time of Disposition: 16:25 Disposition: Home, Self-Care 01 Clinical Impression: Malfunction of gastrostomy tube - Discharge Information Instructions: Gastrostomy Tube Replacement Referrals: PCP,None [Primary Care Provider] - Forms: ED Department Discharge Care Plan Goals: Continue any current treatments as prescribed, return anytime if worsening or concerns or you redevelop issues with the JG tube. Sepsis Event Note (ED) - Focused Exam Vital Signs: Vital Signs Temp Pulse Resp BP Pulse Ox 10/22/21 13:56 98.3 F 106 H 18 128/80 96 10/22/21 13:42 98.3 F 106 H 18 128/80 96
== END 2021-10-22 16:15 | disposition home or self-care (01) ==
LOC: JP.ED 13:19
DX: K94.23 Gastrostomy malfunction (principal); J44.9 Chronic obstructive pulmonary disease, unspecified; E11.9 Type 2 diabetes mellitus without complications; E66.9 Obesity, unspecified; Z68.28 Body mass index [BMI] 28.0-28.9, adult; Z79.899 Other long term (current) drug therapy; Z72.0 Tobacco use
CPT/HCPCS: 43762; 99283-25; J7620-GY

== ENCOUNTER 2024-01-24 18:00 | Emergency (ER) | payer OTHER ==
[2024-01-24 19:20] VITALS: BP 134/79; PULSE 88
[2024-01-24] MEDS: HYDROmorphone 1 MG/ML Syringe IM ONE (20:11)
[2024-01-24] MEDS: Ondansetron 4 MG Tab.DIS PO ONE (20:11)
== END 2024-01-24 20:45 | disposition home or self-care (01) ==
LOC: JP.ED 18:00
DX: K94.13 Enterostomy malfunction (principal); K94.23 Gastrostomy malfunction; Z88.1 Allergy status to other antibiotic agents; I25.2 Old myocardial infarction; J44.9 Chronic obstructive pulmonary disease, unspecified; K21.9 Gastro-esophageal reflux disease without esophagitis; E11.9 Type 2 diabetes mellitus without complications; E66.9 Obesity, unspecified; Z95.5 Presence of coronary angioplasty implant and graft; Z90.49 Acquired absence of other specified parts of digestive tract; Z87.891 Personal history of nicotine dependence; Z68.33 Body mass index [BMI] 33.0-33.9, adult; Z79.51 Long term (current) use of inhaled steroids; Z79.899 Other long term (current) drug therapy
CPT/HCPCS: 43762; 96372; 99283; J1170; Q0162